=== PATIENT | male | born 1960 ===

== ENCOUNTER → 2023-08-09 10:20 | Outpatient (CLI) | payer OTHER, SELFPAY ==
--- NOTE | ~2023-08-09 | US_ITS ---
Testicular ultrasound with doppler. Indication: Testicular swelling. Technique: Real-time sonography the scrotum was performed. Color flow Doppler and Doppler spectral an alysis were performed. Findings: The testes are homogeneous in echotexture bilaterally. There is no evidence of an intrates ticular mass. The right testis measures 4.6 x 2.6 x 3.3 cm and the left 4.5 x 2.3 x 3.1 cm. There is color-flow seen to both testes. Arterial and venous spectral waveforms are seen in both testes. There is no sonographic evidence of torsion. The head of the epididymis is visualized bilaterally and is within normal limits. Impression: Unremarkable exam. No evidence of torsion. Reviewed, dictated and finalized at location . RGLASSER Impression: Unremarkable exam. No evidence of torsion.
== END ==
PROVIDERS: PCP Nurse Practitioner Family; Visit Provider Nurse Practitioner Family
DX: N41.0 Acute prostatitis (principal); N50.89 Other specified disorders of the male genital organs
CPT/HCPCS: 76870; 93976